=== PATIENT | male | born 1990 | race Caucasian/White ===

== ENCOUNTER 2020-07-01 13:54 | Outpatient (CLI) | payer OTHER ==
[2020-07-01 14:32] VITALS: BP 115/83
--- NOTE | 2020-07-01 14:32 | SLEEP CARE CONSULTATION ---
Information from patient questionnaire entered by Juany Reed. I have reviewed and concur with the information entered by Juany Reed. This document represents the service I personally performed and the decisions made by me, Chelsey Yeung ARNP. History of Present Illness Service Date and Time: 07/01/2020 1354 Reason for Visit: New patient Chief Complaint: reports: Unrefreshed sleep, Snoring, Excessive daytime sleepiness, Other (Excessive drowsiness, headaches/migraines) Date of Onset: 2 years Usual bedtime: 11 PM Time it takes to fall asleep: Variable. 10 min to 2 hr Snores at night: Yes Observed to quit breathing while asleep: No Sleeps alone due to snoring: No Number of times waking at night: Maybe one Reasons for waking at night: reports: Pain, Bathroom. denies: Choking, Snoring, Gasping for air Toss, Turn, or Twitch while sleeping: Yes Recalls having dreams: No Usually gets out of bed at: 6:30 - 10:00. Variable. Feels refreshed in the morning: No Morning headache: Yes (all day; he gets headaches every day to every 3rd day) Sleepy or fatigued during the day: Yes Ever fallen asleep while driving: No Takes day naps: Yes (tries daily; 20-30 minutes if able) Dreams during day naps: No Prior sleep studies: No Additional HPI information: I had the pleasure of seeing MICHELLE VALDEZ today regarding the possibility of him having a sleep disorder. His current complaints are excessive drowsiness, snoring and headaches/migraines. He has been having headaches/migraines regularly and his PCP did a sleep apnea questionnaire that indicated he needed to be evaluated. His snoring has been getting worse in the last 2 years. His can still sleep in the same room. She will nudge him sometimes and the snoring will improve for a little while. He is really tired throughout the day and does not feel rested in the morning. He actually feels worse when he wakes up. He wakes up with headaches that last the whole day and averages one daily to every three days. He typically will take a nap to try to reduce the headache. Medications or even massage does not help improve his headaches. His mother and an uncle have severe sleep apnea. - Parasomnia Symptoms Ever been unable to move upon waking from sleep: No Walks in sleep: No Talks in sleep: No Ever acted out dreams in sleep: No Ever felt weak in the knees when startled or emotional: No Bothered by creepy, crawly, restless sensations in legs: Yes (all the time; hx of back injuries and 2 surgeries) Problems with memory or concentration: Yes (concentration) Subjective Initial [place] Sleepiness Scale score: 9 (in 2020) Past Medical History Past Medical History: reports: Other (Severe back pain, headaches; had a L5-S1 fusion and a decompression surgery) Social History The patient's occupation is a [employer] in the . Patient is and lives in [place]. Have you smoked in the past 12 months: No Alcohol use: Yes Alcohol amount and frequency: 8 - 36 oz rarely Caffeine use: Yes Caffeine amount and frequency: 3 - 5 cups per day Family History Family history of sleep disordered breathing: Yes (Uncle and mother have SEVERE snoring and apnea problems) Family Hx Sleep Apnea: Mother: Snoring, Sleep apnea - Untreated, Other: Snoring, Sleep apnea - Treated Allergies and Home Medications Drug allergies reviewed: Yes (NKDA) Home medication list reviewed: Yes Allergy and home medication list: Diclofenac ketoconazole Tylenol, prn Aspirin, prn Calcium Daily vitamin Review of Systems Weight gain over past 5 years: 10 Cardiovascular: denies: high blood pressure Gastrointestinal: denies: heartburn Neurological: reports: headaches. denies: head trauma Psychiatric: denies: anxiety, depression Ear/Nose/Throat: reports: nasal congestion, wisdom teeth removed. denies: dry mouth/throat, injury to nose, tonsillectomy Musculoskeletal: reports: joint pain, neck pain, back pain, muscle pain or cramping, mobility problems Immunologic: denies: allergies to food or environment Physical Exam Blood Pressure: 115/83 Cuff size: wrist Heart Rate: 71 O2 Saturation: 98 Height: 6 ft Weight: 248 lb (with boots) Body Mass Index: 33.6 BMI Classification: Obese Neck circumference: 17 (inches) Nostrils: partially obstructed Turbinates: swollen Mouth and throat: narrow oropharynx Soft palate: long Hard palate: normal Uvula: normal Uvula visualization: 50% Mallampati Class II Tongue: enlarged in size with teeth parsons on lateral edges Tonsils: 2+ Chin and jaw: normal size and position Neck: normal w/o lymphadenopathy or thyromegaly Heart: regular rate and rhythm Lungs: clear bilaterally Impression and Plan 1. Suspected Obstructive Sleep Apnea-Hypopnea Syndrome, as suggested by a history of loud and irregular snoring, morning headache, unrefreshed sleep, cognitive impairment, and excessive daytime sleepiness. Narrow oropharynx and obesity are common predisposing factors for obstructive sleep apnea-hypopnea syndrome. I recommend proceeding to polysomnography to confirm the diagnosis and to assess severity. If the patient has significant sleep disordered breathing, a manual CPAP titration study will also be performed to find the optimal treatment pressure. I informed the patient of what the sleep studies involve and after some discussion, obtained agreement to proceed. The pathophysiology of obstructive sleep apnea-hypopnea syndrome was discussed with the patient and health risks of cardiovascular and cerebrovascular disease if not treated. AAS brochure for obstructive sleep apnea-hypopnea syndrome given and reviewed. 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 Patient agreed to plan. * Schedule polysomnography +- manual CPAP titration study and return in 1-2 weeks after the study to discuss result and initiate therapy. * Avoid long distance driving or driving when feeling sleepy. * Avoid alcohol, sedative and muscle relaxant around bedtime. * Attempt to lose weight. * Review instructions provided by trained office staff on how to prepare for the sleep study. * Return for follow-up after sleep study completed. Counseling Topics: Weight loss health impact Visit Type: In Office Time Spent with Patient (minutes): 31 Provider Statement: I spent 100% of the Face to Face Visit with the patient with greater than 50% spent counseling the patient and coordination of care.
== END 2020-07-01 13:55 | disposition home or self-care (01) ==
LOC: SC 13:54
PROVIDERS: ATTEND Nurse Practitioner Family
DX: R06.83 Snoring (principal); R51.9 Headache, unspecified; R41.89 Other symptoms and signs involving cognitive functions and awareness; E66.9 Obesity, unspecified; Z68.33 Body mass index [BMI] 33.0-33.9, adult; G47.10 Hypersomnia, unspecified
CPT/HCPCS: 99203; 99212

== ENCOUNTER 2020-08-01 12:56 | Outpatient (CLI) | payer OTHER | END 2020-08-01 12:57 | disposition home or self-care (01) | LOC: SC 12:56 | PROVIDERS: ATTEND Nurse Practitioner Family | DX: G47.33 Obstructive sleep apnea (adult) (pediatric) (principal); E66.9 Obesity, unspecified; Z68.33 Body mass index [BMI] 33.0-33.9, adult | CPT/HCPCS: 95806 ==

== ENCOUNTER 2020-08-05 13:14 | Outpatient (CLI) | payer OTHER ==
--- NOTE | 2020-08-05 14:02 | SLEEP CARE CONSULTATION ---
Information from patient questionnaire entered by Juany Reed. I have reviewed and concur with the information entered by Juany Reed. This document represents the service I personally performed and the decisions made by me, Chelsey Yeung ARNP. History of Present Illness Service Date and Time: 08/05/2020 1314 Initial [place] Sleepiness Scale score: 9 (in 2020) Current [place] Sleepiness Scale score: 11 Additional HPI information: MICHELLE VALDEZ returns for follow up and results of the recently performed home sleep study. He was found to have mild obstructive sleep apnea. I explained the pathophysiology behind obstructive sleep apnea. We then spent quite a bit of time discussing different treatment options. For mild obstructive sleep apnea, surgery and oral appliance are alternatives to nasal CPAP therapy but in moderate or severe cases, nasal CPAP is the most effective and reliable treatment. Because apnea is primarily in supine position, then positional management therapy could be effective. Methods discussed such as positioning with pillows, using a T-shirt with tennis balls in the back, and shown commercial products that have a pillow format on back to prevent supine sleep. I reviewed the impact of weight changes on sleep apnea and strongly recommended losing weight. After some discussion, the patient opted to go with the nasal CPAP therapy. Nasal autoCPAP set at 4-15 cmH20 will be ordered with rationale explained. A manual titration study will be ordered if unable to find optimal pressure with office adjustments. I explained how CPAP machine works with sample devices [employer] Dreamstation and [employer] [id number] and what to expect when using the machine. Using CPAP every night in order to get used to it was emphasized. Patient advised to put CPAP mask on before getting into bed so as not to fall asleep without CPAP. To assist acclimation to CPAP use, it could also be used for a short time during day while reading or watching TV. The patient was instructed to call the CPAP supplier to discuss any mechanical problem that may occur. If the mask given is uncomfortable or is difficult to keep on through the night even with adjustment, contact the CPAP supplier as many will replace with another mask style if notified before 30 days. If snoring or perceives is not getting enough air or too much air from the machine, notify this office. AAS patient education PAP tips reviewed and given to patient. Patient counseled not drink alcohol less than 4 hours before bedtime as it can increase snoring and apnea. Patient was cautioned about risks of drowsy driving until sleepiness symptoms resolve. Sleep Study - Results Type of Sleep Study: Home sleep study Prior sleep studies: No Polysomnography/Home Sleep Study results: Physician Impression: The quality of the study is good. The length of the study is adequate (> 240 minutes). Please also see the tabulated and graphic data. 1. Obstructive Sleep Apnea-Hypopnea (ICD-10 G47.33), mild, with an AHI of 9.8/hr and darryl SaO2 of 87%. During the study, the patient had 40 apneas (40 obstructive, 0 central, 0 mixed) and 35 hypopneas. The longest episode lasted 60.0 seconds. The respiratory events occurred almost exclusively during supine sleep (supine AHI was 15.3 and non-supine, 3.15). 2. Hypoxemia (ICD-10 R09.02), mild, with the lowest oxygen saturation of 87 % and 1.1 minutes with SaO2 under 90%. Baseline oxygen saturation was normal (Average oxygen saturation was 94%). Allergies and Home Medications Home medication list reviewed: Yes (no changes) Review of Systems Review of systems same as previous: Yes (no changes) Physical Exam Heart Rate: 76 O2 Saturation: 99 Height: 6 ft Weight: 245 lb Body Mass Index: 33.2 BMI Classification: Obese Impression and Plan 1. Obstructive Sleep Apnea-Hypopnea Syndrome, mild, with lowest oxygen saturation of 87%. Obviously this is the cause of the patients symptoms of unrefreshed sleep, and excessive daytime sleepiness. Positive pressure therapy could benefit his overall health, headaches and reduce his risks for cardiovascular or cerebrovascular adverse events. As mentioned above, the patient will be started on nasal autoCPAP therapy with pressure set at 4-15 cmH2 O. A manual titration study will be completed if unable to find optimal treatment pressure with office adjustments. Compliance guidelines also reviewed. A copy of compliance guidelines will be given for reference at check out. * Nasal auto CPAP therapy, pressure at 4-15 cmH2O. * Attempt to lose weight. * Avoid alcohol consumption near bedtime. * Avoid supine sleep until using CPAP. * The patient is again cautioned about driving until sleepiness completely resolves. * Return one month after CPAP obtained. I will assess response to therapy and compliance at that time. Counseling Topics: Weight loss health impact (l) Visit Type: In Office Time Spent with Patient (minutes): 20 Provider Statement: I spent 100% of the Face to Face Visit with the patient with greater than 50% spent counseling the patient and coordination of care.
== END 2020-08-05 13:15 | disposition home or self-care (01) ==
LOC: SC 13:14
PROVIDERS: ATTEND Nurse Practitioner Family
DX: G47.33 Obstructive sleep apnea (adult) (pediatric) (principal); E66.9 Obesity, unspecified; Z68.33 Body mass index [BMI] 33.0-33.9, adult
CPT/HCPCS: 99212; 99213

== ENCOUNTER 2020-10-03 22:12 | Emergency (ER) | payer OTHER ==
--- NOTE | 2020-10-03 23:11 | ED Physician Documentation ---
PD HPI BACK PAIN - Stated complaint Stated Complaint: BACK PX - Chief complaint Chief Complaint: Back Pain - History obtained from History obtained from: Patient - History of Present Illness Timing - onset: Today (this morning) Timing - details: Gradual onset, Constant, Waxing and waning Pain level now: 6 Location: Lower, Right Quality: Pain, Similar to prior episodes Associated symptoms: No: Fever, Weakness, Numbness, Incontinent of urine, Unable to urinate, Hematuria, Incontinent of stool Improves with: Rest Worsened by: Movement Recently seen: Not recently seen - Additional information Additional information: c/o right low back pain that is worse than usual but otherwise similar to previous episodes of recurrent right low back pain. the pain radiates to his right hip and to proximal thigh posteriorly. He has h/o low back surgery (laminectomy 2015 and fusion 2019). No recent injury. 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 Review of Systems Constitutional: denies: Fever GI: denies: Abdominal Pain, Nausea, Vomiting : reports: Testicular pain. denies: Dysuria, Frequency, Hematuria Musculoskeletal: reports: Back pain Neurologic: denies: Focal weakness, Numbness PD PAST MEDICAL HISTORY - Past Medical History Past Medical History: Yes Neuro: Headaches, Migraines Musculoskeletal: Chronic back pain - Past Surgical History Past Surgical History: Yes Ortho: Spine surgery - Present Medications Home Medications: Ambulatory Orders Medication Instructions Recorded Confirmed Meloxicam [Mobic] 1 tablet PO DAILY PRN 10/03/20 10/03/20 HYDROcod/ACETAM 5/325 [Jupiter 5/325] 1 - 2 tablet PO Q6H PRN #14 tablet 10/04/20 diazePAM [Valium] 5 mg PO TID PRN #15 tablet 10/04/20 - Allergies Allergies/Adverse Reactions: Allergies Allergy/AdvReac Type Severity Reaction Status Date / Time No Known Drug Allergies Allergy Verified 10/03/20 22:20 - Social History Does the pt smoke?: No Smoking Status: Never smoker Does the pt drink ETOH?: No Does the pt have substance abuse?: No - Immunizations Immunizations are current?: Yes - POLST Patient has POLST: No PD ED PE NORMAL - Vitals Vital signs reviewed: Yes - General General: Alert and oriented X 3, No acute distress, Well developed/nourished - Abdomen Abdomen: Soft, Non tender - Back Back: No CVA TTP, No spinal TTP - Derm Derm: No rash - Neuro Neuro: No motor deficit (5/5 bilateral plantar/dorsiflexion), No sensory deficit (LTS intact BLE), Other (2+/4 bilateral patellar DTR without clonus) PD ED PE EXPANDED - Male Male : Normal Exam, Testes descended slade, Normal lie/cremastaric. No: Testicular Mass (no palpable mass), Tenderness Results - Vitals Vitals: Oxygen O2 Source Room air - Rads (name of study) testicular US w/ doppler Radiology: Prelim report reviewed, See rad report PD MEDICAL DECISION MAKING - ED course Complexity details: reviewed results, re-evaluated patient, considered differential, d/w patient ED course: patient's chief complaint is right low back pain that is similar to previous episodes of lumbar radiculopathy, uncontrolled with OTC medications. The pain is worse than usual but otherwise similar to previous episodes in location and quality. unremarkable exam of back and BLE, no recent injury. Emergent imaging regarding this symptom is not indicated at this time. 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 He says he had a testicular US 2015 which demonstrated a right testicular mass; he says he was told this would not require follow up evaluation unless he had worsening symptoms (he cannot recall what symptoms lead to the US) or if he felt a palpable mass. He has not had repeat study until tonight's US; previous results are not available to me. US tonight demonstrates normal arterial flow bilaterally but a 6mm hypoechoic subcapsular right testicular mass. I discussed this result with patient and stressed the importance of seeking follow up with his primary care provider so that previous US results can be obtained for comparative purposes and further study can be obtained as deemed appropriate by his primary care provider (or specialist if he is referred). The possibility of malignancy was discussed and patient expresses understanding of the need for follow up Departure - Departure Disposition: 01 Home, Self Care Clinical Impression: Testicular pain, right Back pain Qualifiers: Back pain location: low back pain Chronicity: chronic Back pain laterality: right Sciatica presence: without sciatica Qualified Code(s): M54.5 - Low back pain Condition: Good Instructions: ED Neck Back Pain General, ED Testicular Pain [facility] Follow-Up: MARIAH MENEZES DO [Primary Care Provider] - Prescriptions: HYDROcod/ACETAM 5/325 [Jupiter 5/325] 1 - 2 tablet PO Q6H PRN #14 tablet PRN Reason: Pain diazePAM [Valium] 5 mg PO TID PRN #15 tablet PRN Reason: Spasms Discharge Date/Time: 10/04/20 03:10
[2020-10-03] MEDS ORDERED: KETOROLAC 60 MG/2 ML VIAL IM STA (23:41)
[2020-10-03] MEDS ORDERED: HYDROcod/ACET 5/325 Prepack 4 PO STA (23:42)
[2020-10-03] MEDS ORDERED: DEXAMETHASONE 10 MG/ML VIAL PO STA (23:42)
[2020-10-03] MEDS ORDERED: CHERRY SYRUP 10 ML UDC PO ONE (23:42)
[2020-10-04 03:11] VITALS: BP 132/71
--- NOTE | 2020-10-04 08:41 | Ultrasound Report ---
PROCEDURE: Testicle w/Doppler INDICATIONS: Right side testicular pain for several hours, patient reports history of a right-sided testicular mass for approximately 5 years. TECHNIQUE: Real-time scanning was performed of the scrotum and testicles, with image documentation. Color and p ulse Doppler interrogation was performed of both testicles. COMPARISON: None. FINDINGS: Right: Testicle is normal in size at 2.2 x 3.6 x 4.1 cm, and mildly heterogeneous in echotexture. T here is a 6 mm subcapsular middle third right testicular mass with internal blood flow. The patient r eports that this has been present for approximately 5 years. No comparison imaging is available for r julissa, however. Epididymis is normal in overall size and morphology and is slightly heterogeneous. Th ere is a small right-sided hydrocele and no varicoceles. Overlying scrotal skin is normal in thickne ss. Left: Testicle is normal in size at 2.1 x 3.6 x 4.8 cm, and homogeneous in echotexture. Epididymis is normal in overall size and morphology. There is a small left-sided hydrocele and no varicoceles. Overlying scrotal skin is normal in thickness. Doppler: Color and pulse Doppler demonstrate normal and symmetric arterial flow in both testicles. IMPRESSION: 1. The dominant concern is presence of a 6 mm hypoechoic subcapsular middle third right testicular ma ss with internal blood flow. The patient reports that this is a known entity, but no comparison repor t or imaging study is available documenting prior presence. Please correlate clinically and attempt t o obtain comparison imaging if available. An addendum to this report can be generated if such imaging becomes available for review. Urology consultation is recommended if prior imaging documenting no ch aime over an extended period of time becomes available. Presumably prior urology consultation has bee n obtained for this patient with this history, but that should be documented in the current medical r ecord. 2. No sign of testicular torsion. No evidence of acute orchitis or epididymitis. Reviewed by: Pasha Henry MD on 10/04/2020 8:40 AM PDT Approved by: Pasha Henry MD on 10/04/2020 8:40 AM PDT Station ID: [id number]
== END 2020-10-04 03:10 | disposition home or self-care (01) ==
LOC: ED 22:12
DX: N50.89 Other specified disorders of the male genital organs (principal); M54.5 Low back pain
CPT/HCPCS: 76870; 93975; 99281; 99284; A9270

== ENCOUNTER 2021-05-28 18:09 | Emergency (ER) | payer OTHER ==
--- NOTE | 2021-05-28 19:42 | XRAY Report ---
PROCEDURE: Chest 1 View X-Ray INDICATIONS: chest pain TECHNIQUE: One view of the chest was acquired. COMPARISON: None FINDINGS: Surgical changes and devices: None. Lungs and pleura: No pleural effusions or pneumothorax. Lungs are clear. Mediastinum: Mediastinal contours appear normal. Heart size is normal. Bones and chest wall: No suspicious bony lesions. Overlying soft tissues appear unremarkable. IMPRESSION: No acute process. Reviewed by: Hpoe Ferrari MD on 05/28/2021 7:40 PM [facility] Approved by: Hope Ferrari MD on 05/28/2021 7:40 PM [facility] Station ID: [id number]
[2021-05-28 19:56] VITALS: BP 134/90
--- NOTE | 2021-05-28 20:18 | ED Physician Documentation ---
History of Present Illness - Stated complaint Stated Complaint: C SYMPTOMS - Chief complaint Chief Complaint: Fever - Additonal information Additional information: 31-year-old male presents emergency department for evaluation of cough cold co ngestions and myalgia. He reports loss of smell but not taste. Fully vaccinated for COVID-19 and is here for COVID-19 screening. He does have a cough. No hemoptysis. No history of tobacco use. No history of diabetes or immune compromise. No history of asthma or COPD. Review of Systems Constitutional: reports: Fever, Chills, Myalgias. denies: Fatigue Eyes: reports: Reviewed and negative Ears: reports: Reviewed and negative Nose: reports: Congestion, Other (Loss of smell but not taste) Throat: reports: Sore throat Cardiac: reports: Reviewed and negative Respiratory: reports: Cough. denies: Dyspnea GI: denies: Abdominal Pain, Nausea, Vomiting : reports: Reviewed and negative Musculoskeletal: reports: Reviewed and negative PD PAST MEDICAL HISTORY - Past Medical History Past Medical History: Yes Cardiovascular: None Respiratory: None Neuro: Headaches, Migraines Endocrine/Autoimmune: None GI: None : None HEENT: None Psych: None Musculoskeletal: Chronic back pain Derm: None - Past Surgical History Past Surgical History: Yes Ortho: Spine surgery - Present Medications Home Medications: Ambulatory Orders Medication Instructions Recorded Confirmed Duloxetine HCl [Cymbalta] 60 mg PO DAILY #30 cap 05/26/21 Oxycodone HCl/Acetaminophen 1 each PO Q6H PRN #7 tablet 05/26/21 [Percocet 5-325 mg Tablet] - Allergies Allergies/Adverse Reactions: Allergies Allergy/AdvReac Type Severity Reaction Status Date / Time No Known Drug Allergies Allergy Verified 05/26/21 16:05 - Social History Does the pt smoke?: No Smoking Status: Never smoker Does the pt drink ETOH?: No Does the pt have substance abuse?: No - Immunizations Immunizations are current?: Yes - POLST Patient has POLST: No PD ED PE NORMAL - General General: Alert and oriented X 3, No acute distress - HEENT HEENT: PERRL - Neck Neck: Supple, no meningeal sign. No: No adenopathy - Cardiac Cardiac: RRR, No murmur - Respiratory Respiratory: Clear bilaterally - Abdomen Abdomen: Normal bowel sounds, Soft, Non tender, Non distended - Back Back: No CVA TTP - Derm Derm: Normal color, Warm and dry - Extremities Extremities: No deformity - Neuro Neuro: Alert and oriented X 3 Eye Opening: Spontaneous Motor: Obeys Commands - Psych Psych: Normal mood Results - Vitals Vitals: Vital Signs - 24 hr 05/28/21 05/28/21 05/28/21 18:32 18:36 19:30 Temperature 37.1 C 37.1 C Heart Rate 111 H 111 H 82 Respiratory 26 H 26 H 18 Rate Blood Pressure 144/99 H 144/99 H 134/90 H O2 Saturation 95 95 99 Oxygen O2 Source Room air - Rads (name of study) CXR Radiology: Final report received (No acute cardiopulmonary process) PD MEDICAL DECISION MAKING - ED course Complexity details: considered differential, d/w patient ED course: 31-year-old male presents emergency department for evaluation of fevers, chills myalgias loss of smell but not taste and concerned that he could have COVID-19. Cardiopulmonary auscultation was unremarkable. No hypoxia or tachypnea. Room air saturations normal. Chest x-ray without acute focal opacity. Respiratory COVID-19 PCR is pending. However at this juncture no other interventions are warranted. If Covid positive he may be a candidate for monoclonal antibodies given his BMI. However he has no other past medical history such as immunocompromise or diabetes that would warrant increased concern in the setting of Covid infection. Routine care of upper respiratory infections was discussed as well as emergent return precautions. Departure - Departure Disposition: 01 Home, Self Care Clinical Impression: Encounter for screening for COVID-19 Upper respiratory infection Qualifiers: URI type: unspecified viral URI Qualified Code(s): J06.9 - Acute upper respiratory infection, unspecified Condition: Stable Record reviewed to determine appropriate education?: Yes Comments: You have a Covid test pending. You need to self quarantine until the result is done and negative. Do not leave your house. Do not get near anybody. The results should be done in 48 to 72 hours. We will call with a positive result, the fastest way to get a negative result for confirmation though is to go to the hospital website at [email or web address], click on the my [facility] tab and sign up for the patient portal. If any friends or family get sick and would like to have a Covid test done, but do not have signs or symptoms that would necessitate being hospitalized, there are multiple local options for Covid testing. [facility] keeps an updated list of testing and vaccination options at [email or web address] Your oxygen levels today were normal. Your chest x-ray did not show findings of pneumonia. Your heart and lungs also sounded normal. In general I recommend that you treat this like a common cold. Stay well- hydrated. You can take Tylenol or ibuprofen for any body aches or discomfort. If at any point you feel that your symptoms are worsening, you have difficulty breathing, have oxygen levels less than 92% at home then please return immediately to the ER for a second evaluation. Discharge Date/Time: 05/28/21 20:26
== END 2021-05-28 20:26 | disposition home or self-care (01) ==
LOC: ED 18:09
DX: J06.9 Acute upper respiratory infection, unspecified (principal); B97.89 Other viral agents as the cause of diseases classified elsewhere; Z20.822 Contact with and (suspected) exposure to COVID-19
CPT/HCPCS: 36415; 99282; 99284

== ENCOUNTER 2021-07-15 01:52 | Outpatient (CLI) | payer OTHER | END 2021-07-15 01:53 | disposition EMS.NT | LOC: EMS 01:52 | DX: R50.9 Fever, unspecified (principal); R07.89 Other chest pain ==

== ENCOUNTER 2021-07-15 02:36 | Emergency (ER) | payer OTHER ==
--- NOTE | 2021-07-15 02:39 | ED Physician Documentation ---
PD HPI CHEST PAIN - Stated complaint Stated Complaint: CHEST TIGHNESS - History obtained from History obtained from: Patient - History of Present Illness Timing - onset: Enter time (19:00), Today Timing - details: Abrupt onset Quality: Tightness Location: Substernal Radiation: Other (no radiation) Improved by: Nothing Worsened by: Other (no exacerbating factors) - Additional information Additional information: patient had COVID booster yesterday at 9:30 AM, then developed fever Tmax 103.3 and chest tightness as 19:00. He took tylenol and ibuprofen and came to ED for evalaution. Denies shortness of breath, cough. Had no adverse reactions with initial COVID immunization Review of Systems Constitutional: reports: Fever, Chills, Sweats. denies: Myalgias, Fatigue Cardiac: reports: Chest pain / pressure. denies: Palpitations Respiratory: reports: Reviewed and negative PD PAST MEDICAL HISTORY - Past Medical History Cardiovascular: None Respiratory: None Neuro: Headaches, Migraines Endocrine/Autoimmune: None GI: None : None HEENT: None Psych: None Musculoskeletal: Chronic back pain Derm: None - Past Surgical History Past Surgical History: Yes Ortho: Spine surgery - Present Medications Home Medications: Ambulatory Orders Medication Instructions Recorded Confirmed Duloxetine HCl [Cymbalta] 60 mg PO DAILY #30 cap 05/26/21 07/15/21 Oxycodone HCl/Acetaminophen 1 each PO Q6H PRN #7 tablet 05/26/21 07/15/21 [Percocet 5-325 mg Tablet] - Allergies Allergies/Adverse Reactions: Allergies Allergy/AdvReac Type Severity Reaction Status Date / Time No Known Drug Allergies Allergy Verified 05/26/21 16:05 - Social History Does the pt smoke?: No Smoking Status: Never smoker Does the pt drink ETOH?: No Does the pt have substance abuse?: No - Immunizations Immunizations are current?: Yes - POLST Patient has POLST: No PD ED PE NORMAL - Vitals Vital signs reviewed: Yes - General General: Alert and oriented X 3, No acute distress, Well developed/nourished - Cardiac Cardiac: RRR, No murmur, No gallop, No rub - Respiratory Respiratory: No respiratory distress, Clear bilaterally Results - Vitals Vitals: Oxygen O2 Source Room air - EKG (time done) No standard instances Rate: Rate (enter#) (103), Tachy Rhythm: Sinus tachycardia [place]: Normal Intervals: Normal [place] QRS: Normal Ischemia: Normal ST segments - Labs Labs: Laboratory Tests 07/15/21 03:35 Troponin I High Sens 5.2 PD MEDICAL DECISION MAKING - ED course Complexity details: reviewed results, re-evaluated patient, considered differential, d/w patient ED course: fever and chest tightness approximately 12 hours after receiving COVID booster. He is in NAD and afebrile in ED. EKG and hs-cTn are normal. Likely adverse reaction/side effect due to COVID booster. Departure - Departure Disposition: Home, Self Care Clinical Impression: Chest pain, Adverse reaction to vaccine Condition: Good Instructions: ED Chest Pain Atypical Unkn Cause Comments: Your EKG has no concerning findings and the cardiac blood test (troponin) is normal. It is likely that your fever and chest discomfort is due to an adverse reaction to the COVID booster shot you had yesterday. As we discussed, adverse reactions to COVID vaccine/booster should resolve within 24 hours of symptom onset. If your symptoms worsen, return to the emergency department . If your symptoms have not resolved within 1-2 days, seek follow up with your primary care provider Discharge Date/Time: 07/15/21 05:12
[2021-07-15 03:40] VITALS: BP 124/84
== END 2021-07-15 05:12 | disposition home or self-care (01) ==
LOC: EDUNIT# → ED 02:36
DX: R07.89 Other chest pain (principal); R50.9 Fever, unspecified; T88.1XXA Other complications following immunization, not elsewhere classified, initial encounter; Y84.8 Other medical procedures as the cause of abnormal reaction of the patient, or of later complication, without mention of misadventure at the time of the procedure
CPT/HCPCS: 36415; 84484; 85025; 93005; 99282; 99283